=== PATIENT | female | born 1980 | race Caucasian/White ===

== ENCOUNTER 2023-02-09 14:39 | Inpatient (IN) | payer MEDICAID, OTHER ==
[~2023-02-09] VITALS: Ht 170.2 cm; Wt 89.8 kg
[2023-02-09 15:16] LABS: VENOUS BASE EXCESS -2.9 (-2.0-2.0); VENOUS HCO3 20.2 MMOL/L (23.0-27.0); VENOUS O2 SATURATION 77.9 % (60.0-80.0); VENOUS PARTIAL PRESSURE CO2 31.2 mmHg (38.0-50.0); VENOUS PARTIAL PRESSURE O2 38.4 mmHg (30.0-50.0); VENOUS PH 7.429 UNITS (7.330-7.430); VENOUS STANDARD HCO3 21.6 MMOL/L; VENOUS TOTAL CO2 21.2 MMOL/L (24.0-28.0)
[2023-02-09 15:23] LABS: BASO # 0.1 10^3/uL (0.0-0.2); BASO % 1.2 % (0.0-1.0); EOS # 0.2 10^3/uL (0.0-0.5); EOS % 2.3 % (0.0-3.0); HEMATOCRIT 44.1 % (36.0-47.0); HEMOGLOBIN 15.2 g/dl (12.0-15.5); LYMPH # 2.9 10^3/uL (1.5-5.0); LYMPH % 30.3 % (24.0-44.0); MEAN CORPUSCULAR HEMOGLOBIN 29.9 pg (27.0-33.0); MEAN CORPUSCULAR HGB CONC 34.5 g/dl (32.0-36.5); MEAN CORPUSCULAR VOLUME 86.6 fl (80.0-96.0); MONO # 0.7 10^3/uL (0.0-0.8); MONO % 6.9 % (2.0-8.0); NEUTROPHILS # 5.6 10^3/uL (1.5-8.5); NEUTROPHILS % 58.8 % (36.0-66.0); PLATELET COUNT, AUTOMATED 297 10^3/uL (150-450); RED BLOOD COUNT 5.09 10^6/uL (4.00-5.40); WHITE BLOOD COUNT 9.5 10^3/uL (4.0-10.0)
[2023-02-09 15:48] LABS: AMPHETAMINES LEVEL URINE NEGATIVE (NEGATIVE); BARBITURATES URINE NEGATIVE (NEGATIVE); BENZODIAZEPINES URINE NEGATIVE (NEGATIVE); CANNABINOIDS URINE NEGATIVE (NEGATIVE); COCAINE METABOLITE URINE NEGATIVE (NEGATIVE); HCG, SERUM QUALITATIVE NEGATIVE (NEGATIVE); METHADONE URINE NEGATIVE (NEGATIVE); OPIATES URINE NEGATIVE (NEGATIVE); PHENCYCLIDINE URINE NEGATIVE (NEGATIVE)
[2023-02-09] MEDS ORDERED: NS 2,000 ML in IV 1 EA IV ONE (15:50)
[2023-02-09 15:51] LABS: ETHYL ALCOHOL (ETHANOL) 0.118 % (0.000-0.010); SALICYLATE LEVEL < 3.0 MG/DL (<30)
[2023-02-09 15:53] LABS: ALBUMIN 3.7 G/DL (3.2-5.2); ALKALINE PHOSPHATASE 70 U/L (46-116); ALT/SGPT 17 U/L (7.0-40); AST/SGOT 19 U/L (<34); BILIRUBIN,DIRECT < 0.1 MG/DL (<0.4); BILIRUBIN,TOTAL 0.4 MG/DL (0.3-1.2); BLOOD UREA NITROGEN 14 MG/DL (9-23); CALCIUM LEVEL 8.7 MG/DL (8.5-10.1); CARBON DIOXIDE LEVEL 20 MMOL/L (20-31); CHLORIDE LEVEL 103 MMOL/L (98-107); CREATININE FOR GFR 0.71 MG/DL (0.55-1.30); GLOMERULAR FILTRATION RATE > 60.0 (>58); GLUCOSE, FASTING 101 MG/DL (60-100); POTASSIUM SERUM 4.3 MMOL/L (3.5-5.1); SODIUM LEVEL 137 MMOL/L (136-145); TOTAL PROTEIN 6.7 G/DL (5.7-8.2)
[2023-02-09 15:54] LABS: OSMOLALITY SERUM 312 MOSM/KG (275-295); THYROID STIMULATING HORMONE 1.429 uIU/ML (0.55-4.78)
[2023-02-09 15:55] LABS: CPK CREATINE PHOSPHOKINASE 53 U/L (34-145)
[2023-02-09 16:33] LABS: RSV AMPLIFICATION NEGATIVE (NEGATIVE)
[2023-02-09] MEDS ORDERED: PROPRANOLOL 10 MG TAB PO ONE (23:30)
[2023-02-10] MEDS ORDERED: diphenhydrAMINE 25MG CAP PO PRN (00:40)
[2023-02-10] MEDS ORDERED: MAALOX 30 ML SUSP *UDC PO PRN (00:40)
[2023-02-10] MEDS ORDERED: traZODone 50 MG TAB PO PRN (00:40)
[2023-02-10] MEDS ORDERED: ACETAMINOPHEN TAB 650MG DOSE (2X325MG) PO PRN (00:40)
[2023-02-10] MEDS ORDERED: LORazepam 2 MG TAB PO PRN (00:40)
[2023-02-10] MEDS ORDERED: IBUPROFEN 400MG TAB PO PRN (00:40)
[2023-02-10] MEDS ORDERED: MOM 30ML SUSPENSION UDC PO PRN (00:40)
[2023-02-10] MEDS ORDERED: FAMO40TA3 PO (01:14)
[2023-02-10] MEDS ORDERED: PROP10TA56 PO (01:14)
[2023-02-10] MEDS ORDERED: HOME MED LIST COMPLETE! XX SCH (01:15)
[2023-02-10 03:05] VITALS: BP 144/78
[2023-02-10 03:06] VITALS: BP 144/78; TEMP 98.1; O2SAT 100
[2023-02-10] MEDS: FOLIC ACID 1MG TAB PO SCH (08:59)
[2023-02-10] MEDS: MULTIVITAMINS/MINERALS THERAP 1 TAB PO SCH (08:59)
[2023-02-10] MEDS: THIAMINE 100 MG TAB PO SCH ×2 (08:59→20:17)
[2023-02-10] MEDS: PROPRANOLOL 10 MG TAB PO PRN ×2 (10:37→22:18)
[2023-02-10] MEDS: NICOTINE 21MG/24HR 1 EA TRANSDERMAL TD SCH (10:37)
[2023-02-10] MEDS: FAMOTIDINE 20 MG TAB PO SCH (10:38)
[2023-02-10 11:00] VITALS: BP 110/59
[2023-02-10 16:28] VITALS: BP 124/72; TEMP 97.5; O2SAT 100
[2023-02-10 19:00] VITALS: BP 120/72
[2023-02-11 06:37] VITALS: BP 133/77; TEMP 98; O2SAT 99
[2023-02-11] MEDS: THIAMINE 100 MG TAB PO SCH ×2 (08:37→21:49)
[2023-02-11] MEDS: SERTRALINE HCL 50 MG TAB PO SCH (08:37)
[2023-02-11] MEDS: NICOTINE 21MG/24HR 1 EA TRANSDERMAL TD SCH (08:37)
[2023-02-11] MEDS: FAMOTIDINE 20 MG TAB PO SCH (08:37)
[2023-02-11] MEDS: MULTIVITAMINS/MINERALS THERAP 1 TAB PO SCH (08:37)
[2023-02-11] MEDS: FOLIC ACID 1MG TAB PO SCH (08:37)
[2023-02-11] MEDS: PROPRANOLOL 10 MG TAB PO PRN (11:30)
[2023-02-11 13:44] VITALS: BP 121/67
[2023-02-11 16:13] VITALS: BP 123/69; TEMP 98.3; O2SAT 99
[2023-02-12 06:50] VITALS: BP 152/78; TEMP 98.3; O2SAT 94
[2023-02-12 06:51] VITALS: BP 152/78
[2023-02-12] MEDS: NICOTINE 21MG/24HR 1 EA TRANSDERMAL TD SCH (09:33)
[2023-02-12] MEDS: FAMOTIDINE 20 MG TAB PO SCH (09:33)
[2023-02-12] MEDS: MULTIVITAMINS/MINERALS THERAP 1 TAB PO SCH (09:33)
[2023-02-12] MEDS: SERTRALINE HCL 50 MG TAB PO SCH (09:33)
[2023-02-12] MEDS: THIAMINE 100 MG TAB PO SCH (09:33)
[2023-02-12] MEDS: FOLIC ACID 1MG TAB PO SCH (09:33)
[2023-02-12] MEDS: PROPRANOLOL 10 MG TAB PO PRN (11:13)
[2023-02-12] MEDS ORDERED: INFLUENZA QUADRIVALENT PF VACCINE 0.5ML SYRINGE IM.IMMUN ONE (16:00)
[2023-02-12 16:29] VITALS: BP 123/74; TEMP 97.9; O2SAT 97
[2023-02-13 06:34] VITALS: BP 132/74; TEMP 98.3; O2SAT 98
[2023-02-13] MEDS: SERTRALINE HCL 50 MG TAB PO SCH (08:22)
[2023-02-13] MEDS: FAMOTIDINE 20 MG TAB PO SCH (08:22)
[2023-02-13] MEDS: NICOTINE 21MG/24HR 1 EA TRANSDERMAL TD SCH (08:23)
[2023-02-13] MEDS ORDERED: NICO21PAT TD (10:11)
[2023-02-13] MEDS ORDERED: SERT50TA29 PO (10:11)
[2023-02-13 10:48] VITALS: BP 132/74
[2023-02-13] MEDS: PROPRANOLOL 10 MG TAB PO PRN (10:48)
== END 2023-02-13 11:52 | disposition home or self-care (01) | DRG 751 ==
LOC: M ED 14:39 → EDBD 14:39 → M ED INP 02-10 00:40 → M PSY 02-10 02:23
PROVIDERS: ADMIT Student in an Organized Health Care Education/Training Program; ATTEND Student in an Organized Health Care Education/Training Program
DX: F33.1 Major depressive disorder, recurrent, moderate (principal); F41.9 Anxiety disorder, unspecified; F10.10 Alcohol abuse, uncomplicated; R45.851 Suicidal ideations; Z88.0 Allergy status to penicillin; Z88.8 Allergy status to other drugs, medicaments and biological substances; Z79.899 Other long term (current) drug therapy; K21.9 Gastro-esophageal reflux disease without esophagitis; R51.9 Headache, unspecified; F17.200 Nicotine dependence, unspecified, uncomplicated; E87.20 Acidosis, unspecified; L57.0 Actinic keratosis